=== PATIENT | female | born 1985 | race Caucasian/White ===

== ENCOUNTER 2016-07-16 08:30 | Emergency (ER) | payer SELFPAY ==
[~2016-07-16] VITALS: Ht 165.1 cm; Wt 76.2 kg
[~2016-07-16 08:30] MED LIST: 12 HOUR DECONG120 M1 PO; ALPRAZOLAM0.25 M2 PO; BENTYL20 MG PO; BUSPAR5 MG PO; CEFTIN500 MG PO; CIPRO500 MG PO; CLARITIN,ALAVAR10 MG PO; FLEXERIL5 MG PO; HYCODAN SYRUP480 ML PO; MACROBID100 MG PO; MOBIC7.5 MG PO; Motrin PO; NAPROSYN500 MG PO; NAPROXEN500 MG PO; NORCO 5/3251 TABLET PO; Natalcare Rx,Pramile PO; PERCOCET 5/31 TABLET PO; PHENERGAN25 MG PO; PROMETHAZINE; PROVENTIL17 G1 IH; PYRIDIUM100 MG PO; PYRIDIUM200 MG PO; RANITIDINE HCL150 M1 PO; ULTRAM50 MG PO; VENTOLIN HFA18 GM IH; VERAPAMIL HCL240 M2 PO; XANAX0.25 MG PO; ZOFRAN ODT4 MG PO; [UNRECOGNIZED DRUG - OTHER]
[2016-07-16] MEDS ORDERED: TESSALON200 MG PO (11:20)
[2016-07-16 11:36] VITALS: BP 126/73
== END 2016-07-16 11:37 | disposition home or self-care (01) ==
LOC: EME 08:30
DX: J06.9 Acute upper respiratory infection, unspecified (principal); R51 Headache
CPT/HCPCS: 71020; 99281; 99284

== ENCOUNTER 2016-07-31 18:01 | Emergency (ER) | payer SELFPAY ==
[~2016-07-31] VITALS: Ht 165.1 cm; Wt 76.9 kg
[~2016-07-31 18:01] MED LIST changes: +TESSALON200 MG PO
[2016-07-31] MEDS ORDERED: ZOFRAN ODT4 MG PO (20:35)
[2016-07-31] MEDS ORDERED: MOTRIN800 MG PO (20:35)
[2016-07-31] MEDS ORDERED: FIORICET 50-301 EACH PO (20:35)
[2016-07-31] MEDS ORDERED: FLONASE16 G1 BOTH NARES (20:36)
[2016-07-31] MEDS ORDERED: MUCINEX D ER T1 EACH PO (20:37)
[2016-07-31] MEDS ORDERED: ANTIVERT25 MG PO (20:38)
[2016-07-31 20:42] VITALS: BP 129/65
== END 2016-07-31 20:51 | disposition home or self-care (01) ==
LOC: EME 18:01
DX: S00.83XA Contusion of other part of head, initial encounter (principal); S06.0X0A Concussion without loss of consciousness, initial encounter; W20.8XXA Other cause of strike by thrown, projected or falling object, initial encounter; Y99.0 Civilian activity done for income or pay; J06.9 Acute upper respiratory infection, unspecified; H65.93 Unspecified nonsuppurative otitis media, bilateral; F17.200 Nicotine dependence, unspecified, uncomplicated
CPT/HCPCS: 70150; 99281; 99284

== ENCOUNTER 2016-08-28 14:43 | Emergency (ER) | payer SELFPAY ==
[~2016-08-28] VITALS: Ht 165.1 cm; Wt 76.1 kg
[~2016-08-28 14:43] MED LIST changes: +ANTIVERT25 MG PO; +FIORICET 50-301 EACH PO; +FLONASE16 G1 BOTH NARES; +MOTRIN800 MG PO; +MUCINEX D ER T1 EACH PO
[2016-08-28 16:56] VITALS: BP 144/77
== END 2016-08-28 16:57 | disposition home or self-care (01) ==
LOC: EME 14:43
DX: H65.02 Acute serous otitis media, left ear (principal)
CPT/HCPCS: 99281; 99283

== ENCOUNTER 2016-10-12 23:11 | Emergency (ER) | payer SELFPAY ==
[~2016-10-12] VITALS: Ht 165.1 cm; Wt 77.2 kg
[2016-10-13 00:02] LABS: HEMATOCRIT 38.9 % (36.0-46.0); MCH 30.7 PG (29.0-34.0); MCHC 34.4 G/DL (30.0-36.0); MCV 89.2 FL (83-99); RBC DIS.WIDTH-CV 11.4 % (11.8-14.6); RBC DIS.WIDTH-SD 37.2 % (39-53); RED BLOOD COUNT 4.36 M/uL (3.80-5.20); WHITE BLOOD COUNT 10.6 K/uL (4.1-10.2)
[2016-10-13 00:12] LABS: CHLORIDE 106 mEq/L (99-109); POTASSIUM 3.9 mEq/L (3.7-5.4); SODIUM 139 mEq/L (136-147)
[2016-10-13 00:14] LABS: GLUCOSE 108 mg/dL (70-99)
[2016-10-13 00:15] LABS: ANION GAP 9 MEQ/L (2-14)
[2016-10-13 00:16] LABS: TOTAL BILIRUBIN 0.3 mg/dL (0.0-1.0)
[2016-10-13 00:17] LABS: ALKALINE PHOSPHATASE 48 IU/L (3-129)
[2016-10-13 00:18] LABS: GFR ESTIMATE (CALCULATED) > 59 mL/min/
[2016-10-13 00:19] LABS: UREA NITROGEN (BUN) 16 mg/dL (9-23)
[2016-10-13 00:28] LABS: QUANTITATIVE HCG < 4.0 MIU/ML
[2016-10-13 00:35] LABS: ADD MIUA? YES; BILIRUBIN NEGATIVE; BLOOD NEGATIVE; COLOR YELLOW ((YELLOW)); GLUCOSE (STRIP) NEGATIVE; KETONES NEGATIVE; LEUKOCYTES TRACE; NITRITE NEGATIVE; PROTEIN (STRIP) NEGATIVE; SPECIFIC GRAVITY 1.011 (1.000-1.030); UROBILINOGEN 0.2 MG/DL (0.2-1.0)
[2016-10-13 01:12] LABS: EPITHELIAL CELLS 2+ /HPF; MUCUS NONE SEEN /LPF; RED BLOOD CELLS 0-5 /HPF (0-5)
[2016-10-13 01:13] LABS: BACTERIA 1+ /HPF; UCUL ADDED? NO
[2016-10-13 01:38] LABS: MEAN PLAT.VOLUME 10.8 uM^3 (9.5-12.4); PLAT.SUFFICIENCY ADEQUATE; PLATELET COUNT 210 K/uL (156-360)
[2016-10-13 01:40] LABS: LIPASE 22 U/L (1.0-51.0)
[2016-10-13] MEDS ORDERED: MACROBID100 MG PO (02:16)
[2016-10-13 02:30] VITALS: BP 109/74
== END 2016-10-13 02:40 | disposition home or self-care (01) ==
LOC: EME 23:11
DX: N30.00 Acute cystitis without hematuria (principal); R11.2 Nausea with vomiting, unspecified; K29.70 Gastritis, unspecified, without bleeding
CPT/HCPCS: 80053; 81003; 83690; 84702; 85027; 93005; 99281; 99284

== ENCOUNTER 2016-12-10 00:22 | Emergency (ER) | payer SELFPAY ==
[~2016-12-10] VITALS: Ht 165.1 cm; Wt 75.7 kg
[2016-12-10 01:02] LABS: ADD MIUA? YES; BILIRUBIN NEGATIVE; BLOOD NEGATIVE; COLOR STRAW ((YELLOW)); GLUCOSE (STRIP) NEGATIVE; KETONES NEGATIVE; LEUKOCYTES TRACE; NITRITE NEGATIVE; PROTEIN (STRIP) NEGATIVE; UROBILINOGEN 0.2 MG/DL (0.2-1.0)
[2016-12-10 01:07] LABS: BACTERIA NONE SEEN /HPF; EPITHELIAL CELLS 1+ /HPF; MUCUS TRACE /LPF; RED BLOOD CELLS 0-5 /HPF (0-5); UCUL ADDED? NO; WHITE BLOOD CELLS 0-5 /HPF (0-5)
[2016-12-10] MEDS ORDERED: MACROBID100 MG PO (01:21)
[2016-12-10 01:23] VITALS: BP 132/79
== END 2016-12-10 01:29 | disposition home or self-care (01) ==
LOC: EME 00:22
PROVIDERS: Physician Assistant
DX: R30.0 Dysuria (principal); Z87.442 Personal history of urinary calculi
CPT/HCPCS: 81003; 87086; 99281; 99283

== ENCOUNTER 2017-05-02 20:42 | Emergency (ER) | payer SELFPAY ==
[~2017-05-02] VITALS: Ht 165.1 cm; Wt 75.5 kg
[2017-05-02 21:16] LABS: HEMATOCRIT 39.7 % (36.0-46.0); MCH 30.7 PG (29.0-34.0); MCHC 34.3 G/DL (30.0-36.0); MCV 89.6 FL (83-99); MEAN PLAT.VOLUME 10.9 uM^3 (9.5-12.4); PLATELET COUNT 209 K/uL (156-360); RBC DIS.WIDTH-CV 11.5 % (11.8-14.6); RBC DIS.WIDTH-SD 37.4 % (39-53); RED BLOOD COUNT 4.43 M/uL (3.80-5.20); WHITE BLOOD COUNT 8.4 K/uL (4.1-10.2)
[2017-05-02 21:24] LABS: D-DIMER ELISA < 150.00 ng/mLDDU (<230)
[2017-05-02 21:26] LABS: CHLORIDE 108 mEq/L (99-109); POTASSIUM 3.5 mEq/L (3.7-5.4); SODIUM 141 mEq/L (136-147)
[2017-05-02 21:28] LABS: GLUCOSE 84 mg/dL (70-99)
[2017-05-02 21:29] LABS: ANION GAP 11 MEQ/L (2-14)
[2017-05-02 21:32] LABS: GFR ESTIMATE (CALCULATED) > 59 mL/min/; UREA NITROGEN (BUN) 15 mg/dL (9-23)
[2017-05-02 21:40] LABS: QUANTITATIVE HCG < 4.0 MIU/ML
[2017-05-02] MEDS ORDERED: VALIUM2 MG PO (22:13)
[2017-05-02] MEDS ORDERED: MOTRIN800 MG PO (22:13)
[2017-05-02 22:32] VITALS: BP 132/93
== END 2017-05-02 22:33 | disposition home or self-care (01) ==
LOC: EME 20:42
PROVIDERS: Physician Assistant
DX: S29.012A Strain of muscle and tendon of back wall of thorax, initial encounter (principal); X58.XXXA Exposure to other specified factors, initial encounter; R06.02 Shortness of breath; R42 Dizziness and giddiness; Z72.0 Tobacco use
CPT/HCPCS: 71020; 80048; 84702; 85027; 85379; 99281; 99284

== ENCOUNTER 2018-01-22 15:59 | Emergency (ER) | payer OTHER ==
[~2018-01-22] VITALS: Ht 165.1 cm; Wt 71.2 kg
[~2018-01-22 15:59] MED LIST changes: +VALIUM2 MG PO
[2018-01-22 16:57] LABS: HEMATOCRIT 45.1 % (36.0-46.0); HEMOGLOBIN 15.3 G/DL (11.9-15.5); MCH 31.4 PG (29.0-34.0); MCHC 33.9 G/DL (30.0-36.0); MCV 92.4 FL (83-99); RBC DIS.WIDTH-CV 11.7 % (11.8-14.6); RBC DIS.WIDTH-SD 39.2 % (39-53); RED BLOOD COUNT 4.88 M/uL (3.80-5.20); WHITE BLOOD COUNT 8.8 K/uL (4.1-10.2)
[2018-01-22 16:59] LABS: APPEARANCE SL.HAZY ((CLEAR)); BILIRUBIN NEGATIVE; BLOOD NEGATIVE; COLOR YELLOW ((YELLOW)); GLUCOSE (STRIP) NEGATIVE; KETONES 5; LEUKOCYTES LARGE; NITRITE NEGATIVE; PROTEIN (STRIP) NEGATIVE; SPECIFIC GRAVITY 1.025 (1.000-1.030); UROBILINOGEN 0.2 MG/DL (0.2-1.0)
[2018-01-22 17:10] LABS: ALBUMIN 4.4 g/dL (3.2-4.8); CHLORIDE 106 mEq/L (99-109); POTASSIUM 4.2 mEq/L (3.7-5.4); SODIUM 142 mEq/L (136-147)
[2018-01-22 17:12] LABS: GLUCOSE 70 mg/dL (70-99); TOTAL PROTEIN 7.1 g/dL (6.4-8.3)
[2018-01-22 17:14] LABS: TOTAL BILIRUBIN 0.3 mg/dL (0.0-1.0)
[2018-01-22 17:15] LABS: ALKALINE PHOSPHATASE 58 IU/L (3-129)
[2018-01-22 17:16] LABS: CREATININE 0.9 mg/dL (0.6-1.3); GFR ESTIMATE (CALCULATED) > 59 mL/min/
[2018-01-22 17:17] LABS: AST (GOT) 15 IU/L (2-34); UREA NITROGEN (BUN) 14 mg/dL (9-23)
[2018-01-22 17:19] LABS: ALT (GPT) 9 IU/L (3-49)
[2018-01-22 17:20] LABS: BACTERIA RARE /HPF; EPITHELIAL CELLS 2+ /HPF; MUCUS TRACE /LPF; RED BLOOD CELLS 0-5 /HPF (0-5); UCUL ADDED? NO; WHITE BLOOD CELLS 0-5 /HPF (0-5)
[2018-01-22 17:25] LABS: QUANTITATIVE HCG < 4.0 MIU/ML
[2018-01-22 18:10] LABS: HEMATOLOGY COMMENT 1 SN; PLAT.SUFFICIENCY ADEQUATE; PLATELET COUNT 222 K/uL (156-360)
[2018-01-22] MEDS ORDERED: METROGEL-VAGINA70 GM VG (19:24)
[2018-01-22] MEDS ORDERED: NAPROSYN500 MG PO (19:24)
[2018-01-22 19:27] LABS: SOURCE SWAB
[2018-01-22 19:42] VITALS: BP 132/76
== END 2018-01-22 19:44 | disposition home or self-care (01) ==
LOC: EME 15:59
PROVIDERS: Nurse Practitioner Family
DX: R10.2 Pelvic and perineal pain (principal); N89.8 Other specified noninflammatory disorders of vagina; I49.3 Ventricular premature depolarization; K21.9 Gastro-esophageal reflux disease without esophagitis; F41.9 Anxiety disorder, unspecified; F17.200 Nicotine dependence, unspecified, uncomplicated; Z87.440 Personal history of urinary (tract) infections; Z87.442 Personal history of urinary calculi; Z86.79 Personal history of other diseases of the circulatory system; Z87.2 Personal history of diseases of the skin and subcutaneous tissue; Z87.42 Personal history of other diseases of the female genital tract; Z88.0 Allergy status to penicillin
CPT/HCPCS: 76856; 80053; 81003; 84702; 85027; 87210; 87480; 87491; 87510; 87591; 87660; 93005; 99281; 99283